=== PATIENT | female | born 1980 | race Hispanic/Latino ===

== ENCOUNTER 2016-08-31 19:08 | Emergency (ER) | payer OTHER ==
[~2016-08-31 19:08] MED LIST: AMARYL 2 MG2 MG PO; AMOXICILLIN500 MG PO; AMOXIL500 MG PO; BACTRIM DS 8001 TAB PO; CLARITIN10 MG PO; CYCLOBENZAPRINE5 M2 PO; DIFLUCAN100 MG PO; EC-NAPROSYN500 MG PO; ENDOCET 325 MG-1 TA1 PO; JANUMET 50-1,01 EACH PO; METFORMIN HCL500 MG PO; MONISTAT 72% VAG; NAPROXEN500 MG PO; PERCOCET 325 MG1 TA2 PO; PROAIR HFA0.09 MG/Ac INH; QUINAPRIL HCL20 MG PO; ZOFRAN ODT4 MG PO
[2016-08-31 19:17] VITALS: BP 164/102
--- NOTE | 2016-08-31 19:57 | ED MVC/FALL/TRAUMA COMPLAINT ---
History of Present Illness General Chief Complaint: Fall Stated Complaint: FALL, TAILBONE PAIN, +HEADSTRIKE Source: patient Exam Limitations: no limitations Vital Signs & Intake/Output Vital Signs & Intake/Output Vital Signs Date Time Temp Pulse Resp B/P Pulse O2 O2 Flow FiO2 Ox Delivery Rate 08/31 1917 94 28 164/102 98 Room Air Allergies Coded Allergies: NO KNOWN ALLERGIES (01/24/16) Reconcile Medications Albuterol Sulfate (Proair Hfa) 0.09 MG/Actuation TRINIDAD 2 PUFF INH PRN ASTHMA ( Reported) Cyclobenzaprine HCl 5 MG TABLET 1 TAB PO TIDPRN Neck pain/spasm Glimepiride (Amaryl 2 MG) (Unknown Strength) TABLET (Unknown Dose) PO DAILY DIABETES (Reported) Ibuprofen 800 MG TABLET 1 TAB PO TID PRN PAIN Loratadine (Claritin) 10 MG TAB 1 TAB PO DAILY ALLERGIES (Reported) Naproxen (EC-Naprosyn) 500 MG TABLET.DR 1 TAB PO DAILY PAIN (Reported) Oxycodone HCl/Acetaminophen (Percocet 5-325 MG Tablet) 5 MG-325 MG TABLET 1 TAB PO 4XDP PRN PAIN TEN...[id number] Sitagliptin Phos/Metformin HCl (Janumet 50-1,000 MG Tablet) 1 EACH TABLET 1 TAB PO BID DIABETES (Reported) Triage Note: PER PT ROLLORBLADING FELL HIT HEAD, LOW BACK PAIN AND L ARM PAIN PER PT + LOC. LMP BEGIN OF JUL. Triage Nurses Notes Reviewed? yes Onset: Abrupt Duration: minute(s): Timing: single episode today Severity: moderate Injuries/Fall Location: head, upper extremity, back Method of Injury: fall Loss of Consciousness: brief (seconds) Modifying Factors: Improves With: rest. Worsens With: movement, palpation. Associated Symptoms: headache : No Patient currently breastfeeds: No HPI: 36-year-old woman prior good health presents after a fall. She states that she was rollerblading at an indoor rink. She fell backwards. She hit her head. She was dazed and possibly lost consciousness briefly. She hit her left elbow. She landed on her lower back. She is able to ambulate but noted significant pain, headache, dizziness. She is now feeling some better but still has discomfort in her lower back left elbow and head. Past History Travel History Traveled to [place] past 21 day No Medical History Any Pertinent Medical History? 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 No Review of Systems Review of Systems Constitutional: Reports: no symptoms. Eyes: Reports: no symptoms. Ears, Nose, Throat, Mouth: Reports: no symptoms. Respiratory: Reports: no symptoms. Cardiovascular: Reports: no symptoms. Gastrointestinal/Abdominal: Reports: no symptoms. Genitourinary: Reports: no symptoms. Musculoskeletal: Reports: no symptoms. Skin: Reports: no symptoms. Neurological/Psychological: Reports: no symptoms. All Other Systems: Reviewed and Negative Physical Exam Physical Exam General Appearance: well developed/nourished, alert, moderate distress Head: atraumatic, normal appearance, mild diffuse tenderness in the occiput Eyes: Bilateral: normal appearance, PERRL, EOMI. Ears, Nose, Throat, Mouth: hearing grossly normal, moist mucous membrane, Tympanic normal Neck: normal inspection, supple, full range of motion, normal alignment Respiratory: normal breath sounds, chest non-tender, no respiratory distress, quiet respiration, lungs clear Cardiovascular: regular rate/rhythm Gastrointestinal: normal bowel sounds, soft, non-tender, no organomegaly Back: normal inspection, normal range of motion Extremities: normal range of motion Neurologic/Psych: no motor/sensory deficits, awake, alert, oriented x 3 Skin: intact, normal color, warm/dry Core Measures ACS in differential dx? No Severe Sepsis Present: No Septic Shock Present: No Progress Differential Diagnosis: C/T/L spine injury, ext injury, ICH, head injury versus elbow fracture versus contusion versus other, neck injury Plan of Care: Orders Procedure Date/time Status HUMAN BETA HCG SCREEN 08/31 2006 Complete Laboratory Tests 08/31/16 2016: Total Beta HCG NEGATIVE 08/31/16 1957: Urine Test Cancelled Diagnostic Imaging: Viewed by Me: Radiology Read, CT Scan. Discussed w/RAD: Radiology Read, CT Scan. Radiology Impression: sacral/coccyx... mildly displaced fx... full report below. , head/cervical ct... no acute disease, left elbow... no fx. Comments: PATIENT: LUIS RIVERA PRESENT AGE: 36 PATIENT ACCOUNT NO: [id number] : 80 LOCATION: [facility] ORDERING PHYSICIAN: CELENA BAÑUELOS MD SERVICE DATE: 08/31/16 EXAM TYPE: RAD - XRY-SACRUM AND COCCYX EXAMINATION: XR SACRUM AND COCCYX CLINICAL INFORMATION: Pain after fall. COMPARISON: Report from CT abdomen and pelvis 02/16/2015. TECHNIQUE: Two frontal and 2 lateral views of the sacrum/coccyx were obtained. FINDINGS: Slightly displaced inferior sacral fracture is demonstrated, with approximately 2 mm of anterior migration of the distal fracture fragment. No other fracture or dislocation. The sacroiliac joints are congruent. IMPRESSION: Minimally displaced lower sacral fracture. DICTATED BY: MAMADOU RAINEY MD DATE/TIME DICTATED:08/31/162138 DIGITAL MARKETING STRATEGIST:SERGIO DATE/TIME TRANSCRIBED:08/31/162138 CONFIDENTIAL, DO NOT COPY WITHOUT APPROPRIATE AUTHORIZATION. <Electronically signed in Other Vendor System> SIGNED BY: MAMADOU RAINEY MD 08/31/162146 Departure Departure Disposition: HOME OR SELF CARE Condition: Stable Clinical Impression Primary Impression: Closed fracture of sacrum Secondary Impressions: Concussion, Contusion, Head injury Referrals: IDA CLEVELAND MD (PCP/Family) Departure Forms: Customer Survey General Discharge Information Prescriptions: Current Visit Scripts Oxycodone HCl/Acetaminophen (Percocet 5-325 MG Tablet) 1 TAB PO 4XDP PRN PAIN #10 TAB TEN...[id number] Ibuprofen 1 TAB PO TID PRN PAIN #60 TAB Ref 1
--- NOTE | 2016-08-31 21:41 | RADIOLOGY REPORT ---
EXAMINATION: XR ELBOW, LEFT CLINICAL INFORMATION: Left elbow pain following fall. COMPARISON: None. TECHNIQUE: AP, lateral, and oblique views of the left elbow. FINDINGS: The bones and soft tissues are normal. No fracture or joint effusion. Alignment is anatomic. Joint spaces are maintained. IMPRESSION: No acute fracture or dislocation of the left elbow.
--- NOTE | 2016-08-31 21:47 | RADIOLOGY REPORT ---
EXAMINATION: XR SACRUM AND COCCYX CLINICAL INFORMATION: Pain after fall. COMPARISON: Report from CT abdomen and pelvis 02/16/2015. TECHNIQUE: Two frontal and 2 lateral views of the sacrum/coccyx were obtained. FINDINGS: Slightly displaced inferior sacral fracture is demonstrated, with approximately 2 mm of anterior migration of the distal fracture fragment. No other fracture or dislocation. The sacroiliac joints are congruent. IMPRESSION: Minimally displaced lower sacral fracture.
--- NOTE | 2016-08-31 22:53 | CT SCAN REPORT ---
EXAMINATION: HEAD CT WITHOUT CONTRAST CERVICAL SPINE CT WITHOUT CONTRAST CLINICAL INFORMATION: Pain after fall. COMPARISON: Cervical spine CT 11/26/2011. TECHNIQUE: Axial noncontrast images of the head and cervical spine were obtained. Reformatted images were reviewed. DLP 976. FINDINGS: Head CT: No acute intracranial hemorrhage or territorial infarction. No extra-axial fluid collection. No mass effect or midline shift. No hydrocephalus. No abnormal attenuation within the brain parenchyma. No calvarial fracture. Paranasal sinuses and mastoid air cells are well aerated. Question a slight degree of exophthalmus bilaterally. No subgaleal hematoma. Cervical spine CT: No prevertebral soft tissue swelling. No fracture or dislocation. There is straightening of normal cervical lordosis, which is a nonspecific finding. No evidence of traumatic spondylolisthesis. Very minimal lower cervical hypertrophic endplate changes. IMPRESSION: 1. No acute intracranial pathology. 2. No acute cervical spine pathology.
[2016-08-31] MEDS ORDERED: PERCOCET 5-3251 EACH PO (23:33)
[2016-08-31] MEDS ORDERED: IBUPROFEN800 M1 PO (23:33)
== END 2016-08-31 23:59 ==
LOC: ERH 19:08
DX: S32.10XA Unspecified fracture of sacrum, initial encounter for closed fracture (principal); S59.902A Unspecified injury of left elbow, initial encounter; V00.121A Fall from non-in-line roller-skates, initial encounter; Y93.51 Activity, roller skating (inline) and skateboarding; Y92.331 Roller skating rink as the place of occurrence of the external cause
CPT/HCPCS: 72220; 73080-LT; 81025; 96372; J1885

== ENCOUNTER 2016-10-02 10:11 | Emergency (ER) | payer OTHER ==
[~2016-10-02] VITALS: Ht 154.9 cm; Wt 88.0 kg
[~2016-10-02 10:11] MED LIST changes: +IBUPROFEN800 M1 PO; +PERCOCET 5-3251 EACH PO
--- NOTE | 2016-10-02 11:12 | ED DYSPNEA/ASTHMA COMPLAINT ---
History of Present Illness General Chief Complaint: Wheezing/Asthma Stated Complaint: ASTHMA Source: patient Exam Limitations: no limitations Vital Signs & Intake/Output Vital Signs & Intake/Output Vital Signs Date Time Temp Pulse Resp B/P Pulse O2 O2 Flow FiO2 Ox Delivery Rate 10/02 1232 115 18 148/84 99 Room Air 10/02 1159 104 16 100 Room Air 10/02 1112 99 Room Air 10/02 1015 97.7 103 22 130/79 99 Room Air Allergies Coded Allergies: NO KNOWN ALLERGIES (01/24/16) Reconcile Medications Albuterol Sulfate (Proair Hfa) 0.09 MG/Actuation TRINIDAD 2 PUFF INH PRN ASTHMA ( Reported) Albuterol Sulfate (Ventolin Hfa) 90 MCG HFA.AER.AD 2 PUF INH Q4-6 PRN PRN WHEEZING Benzonatate (Tessalon Perle) 100 MG CAPSULE 1 CAP PO TID PRN COUGH Cyclobenzaprine HCl 5 MG TABLET 1 TAB PO TIDPRN Neck pain/spasm Glimepiride (Amaryl 2 MG) (Unknown Strength) TABLET (Unknown Dose) PO DAILY DIABETES (Reported) Ibuprofen 800 MG TABLET 1 TAB PO TID PRN PAIN Loratadine (Claritin) 10 MG TAB 1 TAB PO DAILY ALLERGIES (Reported) Naproxen (EC-Naprosyn) 500 MG TABLET.DR 1 TAB PO DAILY PAIN (Reported) Oxycodone HCl/Acetaminophen (Percocet 5-325 MG Tablet) 5 MG-325 MG TABLET 1 TAB PO 4XDP PRN PAIN TEN...[id number] Prednisone 10 MG TABLET 1 TAB PO AD INFLAMMATION DAY1/DAY2 FOUR TABS DAY3/DAY4 THREE TABS DAY5 TWO TABS Sitagliptin Phos/Metformin HCl (Janumet 50-1,000 MG Tablet) 1 EACH TABLET 1 TAB PO BID DIABETES (Reported) Triage Note: C/O ASTHMA ACTING UP SINCE 0400. USED INHALER AND NEBULIZER WITHOUT RELIEF. O2 SATS 99% IN TRIAGE. CONGESTED COUGH NOTED Triage Nurses Notes Reviewed? yes Onset: Gradual Duration: constant Timing: recent history Severity: moderate Activities at Onset: activity : No Patient currently breastfeeds: No HPI: Patient is a 36-year-old female with past medical history of asthma who presents emergent seen at yesterday while ambulating she noticed a gradual onset of shortness of breath and wheezing however the symptoms worsened throughout the evening and this morning. Patient took her nebulizer and inhaler with minimal relief of symptoms. Patient does have nonproductive cough. Denies any fever chills chest pain rash sore throat. Patient is a former smoker 3 weeks ago she quit (KATHRIN AGUILA) Past History Travel History Traveled to [place] past 21 day No Medical History Any Pertinent Medical History? 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 No (KATHRIN AGUILA) Review of Systems Review of Systems Constitutional: Reports: no symptoms. EENTM: Reports: no symptoms. Respiratory: Reports: see HPI, cough, wheezing. Cardiovascular: Reports: no symptoms. GI: Reports: no symptoms. Genitourinary: Reports: no symptoms. Musculoskeletal: Reports: no symptoms. Skin: Reports: no symptoms. Neurological/Psychological: Reports: no symptoms. Hematologic/Endocrine: Reports: no symptoms. Immunologic/Allergic: Reports: no symptoms. All Other Systems: Reviewed and Negative (KATHRIN AGUILA) Physical Exam Physical Exam General Appearance: no apparent distress, comfortable Respiratory: BILATERAL POSTERIOR LUNGS NOTED WHEEZING AND NO RESPIRATORY DISTRESS Comments: Well-developed well-nourished person in no acute distress HEENT: Normal EENT exam, Neck: Supple, no lymphadenopathy, normal range of motion without pain or tenderness Back: Nontender, no CVA tenderness. Cardiovascular: Regular rate and rhythms no murmurs rubs or gallops, normal JVP Abdomen: Soft, nontender nondistended, no appreciable organomegaly. Normal bowel sounds. No ascites Extremity: No edema, no calf tenderness to palpation, normal and equal pulses. Neuro: Alert oriented x3, motor sensory normal, Skin: No appreciable rash on exposed skin, skin is warm and dry. Psych: Mood and affect is normal, memory and judgment is normal. Core Measures ACS in differential dx? No Severe Sepsis Present: No Septic Shock Present: No (KATHRIN AGUILA) Progress Differential Diagnosis: asthma, AMI, bronchitis, costochondritis, CHF, COPD, musculoskeletal pain, pericarditis, pulmonary embolism, pneumonia, pneumothorax, rib fracture, unstable angina Plan of Care: Orders Procedure Date/time Status AEROSOL (GEN) 10/02 1148 Complete Oxygen saturation 99% room air After reexamination after nebulizer patient was in no apparent distress clear lungs auscultation 99% room air. (KATHRIN AGUILA) Initial ED EKG: none (KATHRIN AGUILA) Departure Departure Disposition: HOME OR SELF CARE Condition: Stable Clinical Impression Primary Impression: Asthma Referrals: IDA CLEVELAND MD (PCP/Family) Additional Instructions: As discussed begin the prescription of prednisone tomorrow as you've received prednisone in the emergency room today, begin the prescription of Ventolin for wheezing and shortness of breath, prescriptions are waiting at [place] [facility]. Continue with your nebulizer treatment. If no better in 2 days follow-up with your doctor. If symptoms worsen return to emergency room Begin the prescription of Tessalon Perles for cough Departure Forms: Customer Survey General Discharge Information Prescriptions: Current Visit Scripts Prednisone 1 TAB PO AD #16 TAB DAY1/DAY2 FOUR TABS DAY3/DAY4 THREE TABS DAY5 TWO TABS Albuterol Sulfate (Ventolin Hfa) 2 PUF INH Q4-6 PRN PRN WHEEZING #1 INHAL Benzonatate (Tessalon Perle) 1 CAP PO TID PRN COUGH #21 CAP (KATHRIN AGUILA) PA/CIRCUIT BREAKER MECHANIC Co-Sign Statement Statement: ED Attending supervision documentation- [] I saw and evaluated the patient. I have also reviewed all the pertinent lab results and diagnostic results. I agree with the findings and the plan of care as documented in the PA's/CIRCUIT BREAKER MECHANIC's documentation. x I have reviewed the ED Record and agree with the PA's/CIRCUIT BREAKER MECHANIC's documentation. [] Additions or exceptions (if any) to the PAs/CIRCUIT BREAKER MECHANIC's note and plan are summarized below: [] (MARIA D REDD,MARCIA) Critical Care Note Critical Care Note Critical Care Time: non-applicable (KATHRIN AGUILA)
[2016-10-02] MEDS ORDERED: PREDNISONE10 M2 PO (12:17)
[2016-10-02] MEDS ORDERED: VENTOLIN HFA18 GM INH (12:17)
[2016-10-02] MEDS ORDERED: TESSALON PERLE100 M1 PO (12:18)
[2016-10-02 12:32] VITALS: BP 148/84
== END 2016-10-02 12:56 ==
LOC: ERH 10:11
DX: J45.909 Unspecified asthma, uncomplicated (principal); Z87.891 Personal history of nicotine dependence
CPT/HCPCS: 1263